=== PATIENT | female | born 1955 | race Caucasian/White ===

== ENCOUNTER 2018-09-05 21:57 | Emergency (ER) | payer OTHER ==
[2018-09-05] MEDS ORDERED: Lisinopril 20 MG TAB ONE (22:52)
== END 2018-09-05 23:10 | disposition home or self-care (01) ==
LOC: NAV ERS 21:57
DX: I10 Essential (primary) hypertension (principal); I49.9 Cardiac arrhythmia, unspecified; I48.91 Unspecified atrial fibrillation; E78.5 Hyperlipidemia, unspecified; Z79.899 Other long term (current) drug therapy; Z79.82 Long term (current) use of aspirin
CPT/HCPCS: 93005